=== PATIENT | male | born 1940 | race Caucasian/White ===

== ENCOUNTER 2016-10-01 09:42 | Emergency (ER) | payer MEDICARE, OTHER ==
[2016-10-01 09:49] VITALS: TEMP 98.2; BMI 35.7
--- NOTE | 2016-10-01 11:32 | PDOC ---
History of Present Illness - General History Source: Patient, Family Exam Limitations: No Limitations - History of Present Illness Initial Comments: 10/01/16 12:51 The patient is a 76 year old male, with a significant past medical history of diabetes and hypertension, and hyperlipidemia, who presents to the emergency department complaining of shortness of breath for approximately 3 days. As per granddaughter, the patient has become increasingly short of breath during the past couple of days, and has experienced a cough productive of white and yellow sputum. The patient reports he has a history of pneumonia. He states he was last admitted for pneumonia for 8 days in May, in the [place]. The patient denies he has received any vaccination for pneumonia. The patient reports he has been in the [place] for approximately 3 months, during which he was following up with Dr. Leija. Dr. Leija referred the patient to a wheel of fortune dealer. After following up with his wheel of fortune dealer, the patient reports he was told to return in 1 year. The patient denies any fever, chills, headache, or dizziness. The patient denies any chest pain, diaphoresis, or palpitations. The patient denies any nausea, vomiting, diarrhea, constipation, or changes in urination patterns. The patient denies any sick contacts. Allergies: None reported. Past Surgical History: None reported. Social History: Non-smoker. Denies alcohol or drug use. PCP: Dr. Collins Leija <Miki Argueta - Last Filed: 10/01/16 13:52> <Ricardo Schafer - Last Filed: 10/01/16 16:14> - General Chief Complaint: Shortness of Breath Stated Complaint: SOB, DIZZINESS Time Seen by Provider: 10/01/16 11:31 Past History <Miki Argueta - Last Filed: 10/01/16 13:52> - Past Medical History Diabetes: Yes Disorders: No HTN: Yes Liver Disease: No Thyroid Disease: No - Surgical History Neurologic Surgery: No - Psycho/Social/Smoking Cessation Hx Suicidal Ideation: No Smoking History: Never smoked Have you smoked in the past 12 months: No If you are a former smoker, when did you quit?: 25YRS AGO Information on smoking cessation initiated: No Hx Alcohol Use: No Drug/Substance Use Hx: No Substance Use Type: Alcohol Hx Substance Use Treatment: No <Ricardo Schafer - Last Filed: 10/01/16 16:14> - Past Medical History Allergies/Adverse Reactions: Allergies Allergy/AdvReac Type Severity Reaction Status Date / Time No Known Drug Allergies Allergy Verified 10/01/16 09:44 Home Medications: Ambulatory Orders Aliskiren/Hydrochlorothiazide [Tekturna Hct 150-12.5 mg Tab] 1 tab PO DAILY Aspirin Coated [Ecotrin -] 81 mg PO DAILY 09/05/12 Esomeprazole Mag Trihydrate [Nexium] 40 mg PO DAILY 09/05/12 Furosemide [Lasix -] 20 mg PO DAILY 09/05/12 Sitagliptin Phosphate [Januvia -] 50 mg PO DAILY@0700 09/05/12 Albuterol Sulfate Inhaler - [Ventolin HFA Inhaler -] 1 - 2 inh PO QID #1 inhaler 10/01/16 Alfuzosin HCl [Alfuzosin HCl ER] 10 mg PO DAILY 10/01/16 Amlodipine Besylate 5 mg PO DAILY 10/01/16 Azithromycin [Zithromax -] 250 mg PO DAILY #30 tab 10/01/16 Methylprednisolone [Medrol Dose Omar] 4 mg PO ASDIR #21 tablet 10/01/16 Olmesartan/Hydrochlorothiazide [Benicar Hct 20-12.5 mg Tablet] 1 tab PO DAILY Rosuvastatin [Crestor -] 10 mg PO DAILY 10/01/16 Tradjenta 5 mg PO DAILY 10/01/16 Tramadol HCl 50 mg PO DAILY 10/01/16 Review of Systems - Review of Systems Able to Perform ROS?: Yes Comments:: 10/01/16 12:48 GENERAL/CONSTITUTIONAL: No fever or chills. No weakness. HEAD, EYES, EARS, NOSE AND THROAT: No change in vision. No ear pain or discharge. No sore throat. CARDIOVASCULAR: Yes: +shortness of breath No chest pain. RESPIRATORY: Yes: +cough productive of white-yellow sputum. No wheezing or hemoptysis. GASTROINTESTINAL: No nausea, vomiting, diarrhea or constipation. GENITOURINARY: No dysuria, frequency, or change in urination. MUSCULOSKELETAL: No joint or muscle swelling or pain. No neck or back pain. SKIN: No rash NEUROLOGIC: No headache, vertigo, loss of consciousness, or change in strength/ sensation. ENDOCRINE: No increased thirst. No abnormal weight change. HEMATOLOGIC/LYMPHATIC: No anemia, easy bleeding, or history of blood clots. ALLERGIC/IMMUNOLOGIC: No hives or skin allergy. <Miki Argueta - Last Filed: 10/01/16 13:52> *Physical Exam - Vital Signs Last Vital Signs Temp Pulse Resp BP Pulse Ox 98.2 F 56 L 19 143/84 96 10/01/16 09:46 10/01/16 09:46 10/01/16 09:46 10/01/16 09:46 10/01/16 09:46 - Physical Exam Comments: 10/01/16 12:48 GENERAL: Awake, alert, and fully oriented, in no acute distress HEAD: No signs of trauma EYES: PERRLA, EOMI, sclera anicteric, conjunctiva clear ENT: Auricles normal inspection, hearing grossly normal, nares patent, oropharynx clear without exudates. Moist mucosa NECK: Normal ROM, supple, no lymphadenopathy, JVD, or masses LUNGS: Breath sounds equal, clear to auscultation bilaterally. No wheezes, and no crackles HEART: Regular rate and rhythm, normal S1 and S2, no murmurs, rubs or gallops ABDOMEN: Soft, nontender, normoactive bowel sounds. No guarding, no rebound. No masses EXTREMITIES: Normal range of motion, no edema. No clubbing or cyanosis. No cords, erythema, or tenderness NEUROLOGICAL: Cranial nerves II through XII grossly intact. Normal speech, normal gait SKIN: Warm, Dry, normal turgor, no rashes or lesions noted. <Miki Argueta - Last Filed: 10/01/16 13:52> - Vital Signs Last Vital Signs Temp Pulse Resp BP Pulse Ox 98.2 F 56 L 19 143/84 96 10/01/16 09:46 10/01/16 09:46 10/01/16 09:46 10/01/16 09:46 10/01/16 09:46 <Ricardo Schafer - Last Filed: 10/01/16 16:14> Heart Score/ECG Review - ECG Impressions Comment:: 10/01/16 12:53 Vent. Rate: 46 bpm IMPRESSION: Sinus bradycardia. Nonspecific T wave abnormality. <Miki Argueta - Last Filed: 10/01/16 13:52> ED Treatment Course - LABORATORY CBC & Chemistry Diagram: 10/01/16 12:43 10/01/16 12:43 - RADIOLOGY Radiograph Interpretation: 10/01/16 13:52 EXAM: CXR INTERPRETED BY: Dr. Feldman REVIEWED BY: Dr. Schafer IMPRESSION: No evidence of active pulmonary disease. <Miki Argueta - Last Filed: 10/01/16 13:52> - LABORATORY CBC & Chemistry Diagram: 10/01/16 12:43 10/01/16 12:43 <Ricardo Schafer - Last Filed: 10/01/16 16:14> *DC/Admit/Observation/Transfer - Attestations Scribe Attestion: 10/01/16 11:46 Documentation prepared by Miki Argueta, acting as certified medical technician assistant for Ricardo Schafer DO. <Miki Argueta - Last Filed: 10/01/16 13:52> - Discharge Dispostion Admit: No - Attestations Physician Attestion: 10/01/16 11:31 I, Dr. Ricardo Schafer, attest that this document has been prepared under my direction and personally reviewed by me in its entirety. I further attest, that it accurately reflects all work, treatment, procedures and medical decision -making performed by me. <Ricardo Schafer - Last Filed: 10/01/16 16:14> Diagnosis at time of Disposition: Acute bronchitis Qualifiers: Bronchitis organism: unspecified organism Qualified Code(s): J20.9 - Acute bronchitis, unspecified - Discharge Dispostion Disposition: HOME Condition at time of disposition: Improved - Prescriptions Prescriptions: Methylprednisolone [Medrol Dose Omar] 4 mg PO ASDIR #21 tablet Albuterol Sulfate Inhaler - [Ventolin HFA Inhaler -] 1 - 2 inh PO QID #1 inhaler Azithromycin [Zithromax -] 250 mg PO DAILY #30 tab - Referrals Referrals: Collins Leija MD [Primary Care Provider] - - Patient Instructions Printed Discharge Instructions: DI for Acute Bronchitis Additional Instructions: Manasa Willie- Please start all the medicines tomorrow (Tuesday). Return to us if worse See Dr. Gambino on Tuesday Morning Best- Dr. Ricardo Schafer
[2016-10-01] MEDS ORDERED: ALBUTEROL SO4 2.5/IPRATROPIUM 0.5 INH SOL 3 ML VIAL.NEB. NEB ONE ×2 (12:42→13:02)
[2016-10-01 12:49] LABS: BASOPHIL 0.5 % (0-2.0); EOSINOPHIL 3.5 % (0-4.5); MCH 30.4 pg (25.7-33.7); MCHC 32.6 g/dl (32.0-35.9); MEAN CELL VOLUME 93.4 fl (80-96); MEAN PLT VOLUME 7.7 fl (7.5-11.1); NEUTROPHILS 60.9 % (42.8-82.8); PLATELET COUNT 186 K/MM3 (134-434); RDW 13.3 % (11.9-15.9); WHITE BLOOD COUNT 7.5 K/mm3 (4.0-10.0)
[2016-10-01 13:02] LABS: INR 1.2 (0.82-1.09); PROTHROMBIN TIME (PATIENT) 13.3 SEC (9.98-11.88)
[2016-10-01 13:11] LABS: ALLENS TEST POSITIVE; ART PUNCT SITE LEFT RADIAL; ARTERIAL BLD GAS O2 SATURATION 95.8 % (90-98.9); ARTERIAL BLOOD GAS BASE EXCESS 1.4 meq/l (-2-2); ARTERIAL BLOOD GAS HCO3 25.6 meq/L (22-26); ARTERIAL BLOOD GAS PO2 81.2 mmHg (70-100); ARTERIAL BLOOD GAS pH 7.41 (7.35-7.45); LPM/O2% 21%; PT. ON O2? NO; TYPE OF O2 ROOM AIR
[2016-10-01 13:12] LABS: METHEMOGLOBIN 0.7 % (0.4-1.5)
[2016-10-01 13:15] LABS: ALBUMIN 3.4 g/dl (3.4-5.0); BILIRUBIN,TOTAL 1.1 mg/dL (0.2-1.0); CALCIUM 8.6 mg/dL (8.5-10.1); COCKROFT - GAULT 69.69; CREATININE 1.4 mg/dL (0.7-1.3); TOT PROT 7.1 g/dl (6.4-8.2)
[2016-10-01] MEDS ORDERED: methylPREDNISolone NA SUCC 125 MG/2 ML VIAL IVPB ONE (16:00)
[2016-10-01] MEDS ORDERED: CEFTRIAXONE 1 GM in DEXTROSE 5%-WATER - 50 ML IVPB ONE (16:00)
[2016-10-01] MEDS ORDERED: AZITHROMYCIN 250 MG TABLET (FP) PO ONE (16:00)
[2016-10-01] MEDS ORDERED: AZITHROMYCIN 250 MG TABLET (FP) ONE (16:21)
[2016-10-01] MEDS ORDERED: CEFTRIAXONE 50 ML ONE (16:22)
[2016-10-01] MEDS ORDERED: methylPREDNISolone NA SUCC 125 MG/2 ML VIAL ONE (16:22)
[2016-10-01 17:43] VITALS: BP 142/74; PULSE 50
--- NOTE | 2016-10-02 18:33 | EKG ---
Test Reason : Blood Pressure : / mmHG Vent. Rate : 046 BPM Atrial Rate : 046 BPM P-R Int : 188 ms QRS Dur : 106 ms QT Int : 438 ms P-R-T Axes : 055 -12 026 degrees QTc Int : 383 ms SINUS BRADYCARDIA NONSPECIFIC T WAVE ABNORMALITY ABNORMAL ECG NO PREVIOUS ECGS AVAILABLE BASELINE ARTIFACT Confirmed by FRANCESCO ARRIAZA, ADRI ([id number]) on 10/02/2016 6:33:17 PM Referred By: Confirmed By:ADRI MAYA MD
== END 2016-10-01 17:43 | disposition home or self-care (01) ==
LOC: JER 09:42
PROC: 3E0F7GC Introduction of Other Therapeutic Substance into Respiratory Tract, Via Natural or Artificial Opening (ICD-10-PCS; principal; 2016-10-01)
PROC: 3E03329 Introduction of Other Anti-infective into Peripheral Vein, Percutaneous Approach (ICD-10-PCS; 2016-10-01)
PROC: 3E0333Z Introduction of Anti-inflammatory into Peripheral Vein, Percutaneous Approach (ICD-10-PCS; 2016-10-01)
DX: J20.9 Acute bronchitis, unspecified (principal); I10 Essential (primary) hypertension; E11.9 Type 2 diabetes mellitus without complications; Z79.84 Long term (current) use of oral hypoglycemic drugs
CPT/HCPCS: 36415; 36600; 71010-TC; 80053; 82375; 82803; 83050; 83880; 85025; 85610; 93005; 93010; 94640; 96365; 96375; 99283-25

== ENCOUNTER 2017-11-05 17:56 | Emergency (ER) | payer MEDICARE, OTHER ==
[2017-11-05 18:13] VITALS: BMI 35.4
--- NOTE | 2017-11-05 18:20 | PDOC ---
History of Present Illness - General Chief Complaint: Respiratory Stated Complaint: FALL INJURY/FATIGUE Time Seen by Provider: 11/05/17 18:14 - History of Present Illness Initial Comments: 11/05/17 18:18 GENERAL: Awake, alert, and fully oriented, in no acute distress HEAD: No signs of trauma, normocephalic, atraumatic EYES: PERRLA, EOMI, sclera anicteric, conjunctiva clear ENT: Auricles normal inspection, hearing grossly normal, nares patent, oropharynx clear without exudates. Moist mucosa NECK: Normal ROM, supple, no lymphadenopathy, JVD, or masses LUNGS: No distress, speaks full sentences, clear to auscultation bilaterally HEART: Regular rate and rhythm, normal S1 and S2, no murmurs, rubs or gallops, peripheral pulses normal and equal bilaterally. ABDOMEN: Soft, nontender, normoactive bowel sounds. No guarding, no rebound. No masses EXTREMITIES : Normal inspection, Normal range of motion, no edema. No clubbing or cyanosis. NEUROLOGICAL: Cranial nerves II through XII grossly intact. Normal speech, normal gait, no focal sensorimotor deficits SKIN: Warm, Dry, normal turgor, no rashes or lesions noted Past History - Past Medical History Allergies/Adverse Reactions: Allergies Allergy/AdvReac Type Severity Reaction Status Date / Time No Known Drug Allergies Allergy Verified 11/05/17 18:13 Home Medications: Ambulatory Orders Aliskiren/Hydrochlorothiazide [Tekturna Hct 150-12.5 mg Tab] 1 tab PO DAILY Aspirin Coated [Ecotrin -] 81 mg PO DAILY 09/05/12 Esomeprazole Mag Trihydrate [Nexium] 40 mg PO DAILY 09/05/12 Furosemide [Lasix -] 20 mg PO DAILY 09/05/12 Sitagliptin Phosphate [Januvia -] 50 mg PO DAILY@0700 09/05/12 Albuterol Sulfate Inhaler - [Ventolin HFA Inhaler -] 1 - 2 inh PO QID #1 inhaler 10/01/16 Alfuzosin HCl [Alfuzosin HCl ER] 10 mg PO DAILY 10/01/16 Amlodipine Besylate 5 mg PO DAILY 10/01/16 Azithromycin [Zithromax -] 250 mg PO DAILY #30 tab 10/01/16 Methylprednisolone [Medrol Dose Omar] 4 mg PO ASDIR #21 tablet 10/01/16 Olmesartan/Hydrochlorothiazide [Benicar Hct 20-12.5 mg Tablet] 1 tab PO DAILY Rosuvastatin [Crestor -] 10 mg PO DAILY 10/01/16 Tradjenta 5 mg PO DAILY 10/01/16 Tramadol HCl 50 mg PO DAILY 10/01/16 COPD: No Diabetes: Yes Disorders: No HTN: Yes Liver Disease: No Thyroid Disease: No - Surgical History Neurologic Surgery: No - Suicide/Smoking/Psychosocial Hx Smoking History: Never smoked Have you smoked in the past 12 months: No If you are a former smoker, when did you quit?: 25YRS AGO Hx Alcohol Use: No Drug/Substance Use Hx: No Substance Use Type: Alcohol Hx Substance Use Treatment: No Review of Systems - Review of Systems Comments:: 11/05/17 18:17 GENERAL: Awake, alert, and fully oriented, in no acute distress HEAD: No signs of trauma, normocephalic, atraumatic EYES: PERRLA, EOMI, sclera anicteric, conjunctiva clear ENT: Auricles normal inspection, hearing grossly normal, nares patent, oropharynx clear without exudates. Moist mucosa NECK: Normal ROM, supple, no lymphadenopathy, JVD, or masses LUNGS: No distress, speaks full sentences, clear to auscultation bilaterally HEART: Regular rate and rhythm, normal S1 and S2, no murmurs, rubs or gallops, peripheral pulses normal and equal bilaterally. ABDOMEN: Soft, nontender, normoactive bowel sounds. No guarding, no rebound. No masses EXTREMITIES : Normal inspection, Normal range of motion, no edema. No clubbing or cyanosis. NEUROLOGICAL: Cranial nerves II through XII grossly intact. Normal speech, normal gait, no focal sensorimotor deficits SKIN: Warm, Dry, normal turgor, no rashes or lesions noted *Physical Exam - Vital Signs Last Vital Signs Temp Pulse Resp BP Pulse Ox 97.2 F L 65 18 115/53 99 11/05/17 18:10 11/05/17 18:10 11/05/17 18:10 11/05/17 18:10 11/05/17 18:10
--- NOTE | 2017-11-05 19:11 | PDOC ---
History of Present Illness - General Chief Complaint: Respiratory Stated Complaint: FALL INJURY/FATIGUE Time Seen by Provider: 11/05/17 18:14 - History of Present Illness Initial Comments: 11/05/17 19:11 Mr. Tapia is a 77 yo male w/ pmh of DM, HTN, HLD, Asthma, and COPD who presents following fall earlier today. He reports he has had a 5-6 day cough for which he saw his PCP yesterday and was given prednisone; had an episode of coughing today that caused him to get dizzy and fall. The patient denies chest pain and headache. Denies fever, chills, nausea, vomit , diarrhea and constipation. Denies dysuria, frequency, urgency and hematuria. Allergies: NKDA PCP: Dr. Collins Leija Past History - Past Medical History Allergies/Adverse Reactions: Allergies Allergy/AdvReac Type Severity Reaction Status Date / Time No Known Drug Allergies Allergy Verified 11/05/17 18:13 Home Medications: Ambulatory Orders Aliskiren/Hydrochlorothiazide [Tekturna Hct 150-12.5 mg Tab] 1 tab PO DAILY Aspirin Coated [Ecotrin -] 81 mg PO DAILY 09/05/12 Esomeprazole Mag Trihydrate [Nexium] 40 mg PO DAILY 09/05/12 Furosemide [Lasix -] 20 mg PO DAILY 09/05/12 Sitagliptin Phosphate [Januvia -] 50 mg PO DAILY@0700 09/05/12 Albuterol Sulfate Inhaler - [Ventolin HFA Inhaler -] 1 - 2 inh PO QID #1 inhaler 10/01/16 Alfuzosin HCl [Alfuzosin HCl ER] 10 mg PO DAILY 10/01/16 Amlodipine Besylate 5 mg PO DAILY 10/01/16 Azithromycin [Zithromax -] 250 mg PO DAILY #30 tab 10/01/16 Methylprednisolone [Medrol Dose Omar] 4 mg PO ASDIR #21 tablet 10/01/16 Olmesartan/Hydrochlorothiazide [Benicar Hct 20-12.5 mg Tablet] 1 tab PO DAILY Rosuvastatin [Crestor -] 10 mg PO DAILY 10/01/16 Tradjenta 5 mg PO DAILY 10/01/16 Tramadol HCl 50 mg PO DAILY 10/01/16 COPD: No Diabetes: Yes Disorders: No HTN: Yes Liver Disease: No Thyroid Disease: No - Surgical History Neurologic Surgery: No - Suicide/Smoking/Psychosocial Hx Smoking History: Never smoked Have you smoked in the past 12 months: No If you are a former smoker, when did you quit?: 25YRS AGO Hx Alcohol Use: No Drug/Substance Use Hx: No Substance Use Type: Alcohol Hx Substance Use Treatment: No Review of Systems - Review of Systems Comments:: 11/05/17 19:21 GENERAL/CONSTITUTIONAL: No fever or chills. No weakness. HEAD, EYES, EARS, NOSE AND THROAT: No change in vision. No ear pain or discharge. No sore throat. CARDIOVASCULAR: No chest pain or shortness of breath RESPIRATORY: Cough as described. No wheezing, or hemoptysis. GASTROINTESTINAL: No nausea, vomiting, diarrhea or constipation. GENITOURINARY: No dysuria, frequency, or change in urination. MUSCULOSKELETAL: No joint or muscle swelling or pain. No neck or back pain. SKIN: No rash NEUROLOGIC: No headache, vertigo, loss of consciousness, or change in strength/ sensation. ENDOCRINE: No increased thirst. No abnormal weight change HEMATOLOGIC/LYMPHATIC: No anemia, easy bleeding, or history of blood clots. ALLERGIC/IMMUNOLOGIC: No hives or skin allergy. *Physical Exam - Vital Signs Last Vital Signs Temp Pulse Resp BP Pulse Ox 97.2 F L 65 18 115/53 99 11/05/17 18:10 11/05/17 18:10 11/05/17 18:10 11/05/17 18:10 11/05/17 18:10 - Physical Exam Comments: 11/05/17 19:21 GENERAL: Awake, alert, and fully oriented, in no acute distress HEAD: No signs of trauma, normocephalic, atraumatic EYES: PERRLA, EOMI, sclera anicteric, conjunctiva clear ENT: Auricles normal inspection, hearing grossly normal, nares patent, oropharynx clear without exudates. Moist mucosa NECK: Normal ROM, supple, no lymphadenopathy, JVD, or masses LUNGS: No distress, speaks full sentences, clear to auscultation bilaterally HEART: Regular rate and rhythm, normal S1 and S2, no murmurs, rubs or gallops, peripheral pulses normal and equal bilaterally. ABDOMEN: Soft, nontender, normoactive bowel sounds. No guarding, no rebound. No masses EXTREMITIES: Normal inspection, Normal range of motion, no edema. No clubbing or cyanosis. NEUROLOGICAL: Cranial nerves II through XII grossly intact. Normal speech, normal gait, no focal sensorimotor deficits SKIN: Warm, Dry, normal turgor, no rashes or lesions noted. ED Treatment Course - LABORATORY CBC & Chemistry Diagram: 11/05/17 19:35 11/05/17 20:40 Medical Decision Making - Medical Decision Making 11/05/17 20:59 Mr. Tapia is a 77 yo male w/ pmh as described who presents for evaluation post fall earlier today. Head CT ordered for evaluation to r/o acute bleed, labs sent as below for further evaluation. 11/05/17 21:53 Patient labs grossly unconcerning. No concern for acute process at this time. Head CT negative as well as CXR. Patient reporting some relief from coughing symptoms and is stable. Patient will continue taking prednisone and montelukast given by PCP for cough and will follow-up with him next week in office. Laboratory Results - last 24 hr 11/05/17 11/05/17 11/05/17 19:35 19:35 19:35 WBC 5.5 RBC 4.47 Hgb 13.9 Hct 42.4 MCV 94.9 MCH 31.0 MCHC 32.7 RDW 12.9 Plt Count 214 MPV 8.7 D Neutrophils % 75.9 D Lymphocytes % 16.6 D Monocytes % 5.6 Eosinophils % 1.3 Basophils % 0.6 Sodium Cancelled Potassium Cancelled Chloride Cancelled Carbon Dioxide Cancelled Anion Gap Cancelled BUN Cancelled Creatinine Cancelled Creat Clearance w eGFR Cancelled Random Glucose Cancelled Calcium Cancelled Total Bilirubin Cancelled AST Cancelled ALT Cancelled Alkaline Phosphatase Cancelled Creatine Kinase Cancelled Creatine Kinase Index CK-MB (CK-2) Troponin I Cancelled Total Protein Cancelled Albumin Cancelled Blood Type O POSITIVE Antibody Screen Negative 11/05/17 11/05/17 20:40 20:40 WBC RBC Hgb Hct MCV MCH MCHC RDW Plt Count MPV Neutrophils % Lymphocytes % Monocytes % Eosinophils % Basophils % Sodium 137 Potassium 4.7 Chloride 106 Carbon Dioxide 27 Anion Gap 4 L BUN 16 Creatinine 1.6 H Creat Clearance w eGFR 42.12 Random Glucose 238 H D Calcium 8.1 L Total Bilirubin 0.5 D AST 52 H D ALT 52 D Alkaline Phosphatase 99 Creatine Kinase 176 Creatine Kinase Index 2.0 CK-MB (CK-2) 3.659 H Troponin I < 0.02 Total Protein 7.3 Albumin 3.3 L Blood Type Antibody Screen *DC/Admit/Observation/Transfer Diagnosis at time of Disposition: Cough Fall Qualifiers: Encounter type: initial encounter Qualified Code(s): W19.XXXA - Unspecified fall, initial encounter - Discharge Dispostion Disposition: HOME - Referrals - Patient Instructions Printed Discharge Instructions: DI for Cough -- Adult Additional Instructions: Please follow-up with primary care provider on Tuesday as discussed. Continue to take prednisone and montelukast as previously proscribed. Print Language: SLOVAK - Post Discharge Activity
[2017-11-05] MEDS ORDERED: SODIUM CHLORIDE 1,000 ML IV STA (19:26)
--- NOTE | 2017-11-05 19:26 | PDOC ---
Attending Attestation - Resident Resident Name: Patricio Bajwaorn - ED Attending Attestation I have performed the following: I have examined & evaluated the patient, The case was reviewed & discussed with the resident, I agree w/resident's findings & plan - HPI HPI: 11/05/17 21:04 Pt was coughing heavily at lunch and fell out of his dining chair. Unclear if he passed out. Pt and family poor historians. was there and got him up. Pt felt better and decided not to seek care. Kids came over and they decided that dad should be checked out for his incessant cough. Pt has - Physicial Exam PE: 11/05/17 21:07 Agree with resident exam - Medical Decision Making 11/05/17 21:07 Labs and CXR 11/05/17 21:52 Patient Name: JESSICA VILLEGAS THIS IS A PRELIMINARY REPORT FROM [facility] EMT EXAM: CT Head wo IMAGES: 204 EXAM DATE AND TIME: 2017-11-05 20:21:49 HISTORY: 77 year old man who fell and hit his head. Head trauma. COMPARISON: None TECHNIQUE: Non-contrast axial images were obtained. Coronal and sagittal images were also generated. One or more of the following dose reduction techniques were used: automated exposure control, adjustment of the mA and/or kV according to patient size, use of iterative reconstruction technique. FINDINGS: There are no intracranial hemorrhages, brain parenchymal contusion injuries, or imaged calvarial, facial or skull base fractures. There is no subcutaneous soft tissue swelling. There are no extra-axial fluid collections or evidence of an intra-axial mass lesion. The sulci and ventricles are mildly prominent suggesting mild age related involutional changes. There is no evidence of an acute or chronic ischemic lesion at this time. Orbital and petrous structures, cerebellopontine angles, and posterior fossa appear unremarkable. The paranasal and mastoid sinuses are clear. IMPRESSION: Mild age related involutional changes. The study is otherwise unremarkable. No calvarial, facial or skull base fractures imaged on the current exam. No intracranial hemorrhages or brain parenchymal contusion injuries. . THIS DOCUMENT HAS BEEN ELECTRONICALLY SIGNED 11/06/17 05:56 Labd normal; pt looks great; d/c home <Gaye Oneill - Last Filed: 11/06/17 05:56> Heart Score/ECG Review - ECG Intrepretation Comment:: 11/05/17 21:34 Completed @19:31:20 Normal sinus rhythm Nonspecific T wave abnormality Abnormal ECG Vent, rate 61 bpm [place] interval 174 ms QRS duration 106 ms <Amilcar Marie - Last Filed: 11/05/17 21:34>
[2017-11-05 19:50] LABS: BASO % 0.6 % (0-2.0); EOS % 1.3 % (0-4.5); HEMATOCRIT 42.4 % (35.4-49); HEMOGLOBIN 13.9 GM/dL (11.7-16.9); LYMPH % 16.6 % (8-40); MCHC 32.7 g/dl (32.0-35.9); MEAN CELL VOLUME 94.9 fl (80-96); MEAN PLT VOLUME 8.7 fl (7.5-11.1); MONO % 5.6 % (3.8-10.2); NEUT % 75.9 % (42.8-82.8); PLATELET COUNT 214 K/MM3 (134-434); RBC 4.47 M/mm3 (4.00-5.60); RDW 12.9 % (11.9-15.9); WHITE BLOOD COUNT 5.5 K/mm3 (4.0-10.0)
[2017-11-05] MEDS ORDERED: ALBUTEROL SO4 2.5/IPRATROPIUM 0.5 INH SOL 3 ML VIAL.NEB. NEB ONE ×2 (21:03→21:08)
[2017-11-05 21:19] LABS: ALBUMIN 3.3 g/dl (3.4-5.0); ANION GAP 4 (8-16); BILIRUBIN,TOTAL 0.5 mg/dL (0.2-1.0); BLOOD UREA NITROGEN 16 mg/dL (7-18); CALCIUM 8.1 mg/dL (8.5-10.1); CHLORIDE 106 mmol/L (98-107); CO2 27 mmol/L (21-32); CREATININE 1.6 mg/dL (0.7-1.3); GLUCOSE,RANDOM 238 mg/dL (74-106); POTASSIUM 4.7 mmol/L (3.5-5.1); SGOT/AST 52 U/L (15-37); SGPT/ALT 52 U/L (12-78); SODIUM 137 mmol/L (136-145); TOT PROT 7.3 g/dl (6.4-8.2)
[2017-11-05 21:20] LABS: ALK PHOS 99 U/L (45-117)
[2017-11-05 22:21] VITALS: BP 110/54; PULSE 67; TEMP 98.1
--- NOTE | 2017-11-08 00:28 | EKG ---
Test Reason : Blood Pressure : / mmHG Vent. Rate : 062 BPM Atrial Rate : 062 BPM P-R Int : 180 ms QRS Dur : 104 ms QT Int : 428 ms P-R-T Axes : 061 -22 032 degrees QTc Int : 434 ms NORMAL SINUS RHYTHM NONSPECIFIC T WAVE ABNORMALITY ABNORMAL ECG WHEN COMPARED WITH ECG OF 01-OCT-2016 11:46, NO SIGNIFICANT CHANGE WAS FOUND Confirmed by MERLINE MCKEON MD ([id number]) on 11/08/2017 12:28:18 AM Referred By: Confirmed By:MERLINE MCKEON MD
== END 2017-11-05 22:23 | disposition home or self-care (01) ==
LOC: JER 17:56
DX: S09.8XXA Other specified injuries of head, initial encounter (principal); R05 Cough; W07.XXXA Fall from chair, initial encounter; Z91.81 History of falling; Y93.89 Activity, other specified; Y92.038 Other place in apartment as the place of occurrence of the external cause; Y99.8 Other external cause status; I10 Essential (primary) hypertension; E78.00 Pure hypercholesterolemia, unspecified; E11.9 Type 2 diabetes mellitus without complications; Z79.84 Long term (current) use of oral hypoglycemic drugs; J45.909 Unspecified asthma, uncomplicated; J44.9 Chronic obstructive pulmonary disease, unspecified; Z87.891 Personal history of nicotine dependence
CPT/HCPCS: 36415; 70450-TC; 71046-TC-FY; 80053; 82550; 82553; 84484; 85025; 86850; 86900; 86901; 93005; 93010; 99283-25; J7030; J7620